=== PATIENT | female | born 1980 | race Caucasian/White ===

== ENCOUNTER → 2023-07-28 08:44 | Outpatient (REF) | payer BC, SELFPAY | LOC: HWRAD 08:44 | PROVIDERS: ATTENDING PHYSICIAN Obstetrics & Gynecology; FAMILY PHYSICIAN Student in an Organized Health Care Education/Training Program | DX: N92.0 Excessive and frequent menstruation with regular cycle (principal) | CPT/HCPCS: 76830; 76856 ==

== ENCOUNTER → 2023-08-21 10:03 | Outpatient (REF) | payer BC, SELFPAY | LOC: HWWDC 10:03 | PROVIDERS: ATTENDING PHYSICIAN Obstetrics & Gynecology; FAMILY PHYSICIAN Student in an Organized Health Care Education/Training Program | DX: Z12.31 Encounter for screening mammogram for malignant neoplasm of breast (principal) | CPT/HCPCS: 77063; 77067 ==

== ENCOUNTER → 2024-02-19 10:35 | Outpatient (REF) | payer BC, SELFPAY | LOC: WDC 10:35 | PROVIDERS: ATTENDING PHYSICIAN Obstetrics & Gynecology; FAMILY PHYSICIAN Student in an Organized Health Care Education/Training Program | DX: N64.4 Mastodynia (principal) | CPT/HCPCS: 76642; 77061; 77065 ==

== ENCOUNTER 2024-08-31 10:50 | Emergency (ER) | payer BC, SELFPAY ==
[2024-08-31 10:55] VITALS: BP 123/79
--- NOTE | 2024-08-31 11:01 | ED.GENMED ---
History of Present Illness
<Korey Singh PA-C - Last Filed: 08/31/24 13:58>
General
Chief Complaint: Chest Pain
Time Seen by Provider: 08/31/24 10:59
History of Present Illness
History of Present Illness:
43-year-old female presents to the emergency department for evaluation of intermittent chest pains ongoing for the past several days. Pain seems to vary in location from the lower to upper chest. No obvious provoking or palliating factors. She
does follow as an outpatient with cardiology and had a recent echocardiogram as well as a stress test late last year that were both grossly unremarkable. She has no shortness of breath or leg swelling/calf cramping. Does not take any exogenous
hormones. No recent immobilization. Denies any recent fevers or chills.
Past History
<Lauro Forrester DO - Last Filed: >
Past History
ED Past Medical History: Hypothyroidism; Negative Asthma, HTN, Hypercholesterolemia or NIDDM
ED Past Surgical History: Gynecological (medical termination of at 20 weeks)
Social History
Tobacco: Non-smoker
Alcohol: None
Personal:
Living: with family
Review of Systems
<Korey Singh PA-C - Last Filed: 08/31/24 13:58>
Review of Systems
Allergies reviewed?: Yes
All Other Systems: ROS reviewed and negative except as documented in HPI and ROS
Phy Exam
<Korey Singh PA-C - Last Filed: 08/31/24 13:58>
Physical Exam
Physical Exam:
GEN: Well appearing, NAD, WDWN
HEENT: Oral mucosa moist, no scleral icterus
Cardiac: Regular rate and rhythm, no murmurs
Lung: No respiratory distress, no tachypnea, lungs clear to auscultation
Chest: Mildly reproduced chest discomfort the left upper chest wall without palpable deformity
MSK: No gross deformity or injuries
Skin: Good color, no pallor or jaundice, no rashes
Neuro: AO x3, moves all extremities freely
Psych: Calm, cooperative
Scores
<Korey Singh PA-C - Last Filed: 08/31/24 13:58>
Heart Score for Chest Pain Patients
STEMI patient?: No
History: Slightly or Non-Suspicious
ECG: Normal
Age: </= 45 years
Risk Factors: 1 or 2 Risk Factors
Troponin: </= Normal Limit
Heart Score for Chest Pain Patients: 1
Heart Score Risk: 2.5% MACE over next 6 weeks
Course
<Korey Singh PA-C - Last Filed: 08/31/24 13:58>
Orders/Labs/Results
Orders:
Orders
08/31/24 10:51
Electrocardiogram (*1) Urgent
Reason for Study: Chest Pain
EKG- Treatment ONCE
08/31/24 12:04
Complete Blood Count/No Diff Urgent
Comprehensive Metabolic Panel Urgent
Troponin I Urgent
Abnormal Lab Results
08/31/24
12:04
MCV 79.7 L fL
(81.0-99.0)
Chloride 109 H mmol/L
(98-107)
08/31/24 12:04
08/31/24 12:04
Vital Signs
Initial and Last Documented VS:
Initial Vital Signs
Temp Pulse Resp BP Pulse Ox
98.3 F 72 18 123/79 100
08/31/24 10:55 08/31/24 10:55 08/31/24 10:55 08/31/24 10:55 08/31/24 10:55
Last Documented Vital Signs
Temp Pulse Resp BP Pulse Ox
98.3 F 70 18 120/74 99
08/31/24 10:55 08/31/24 13:10 08/31/24 13:10 08/31/24 13:10 08/31/24 13:10
<Lauro Forrester DO - Last Filed: >
Orders/Labs/Results
Orders:
Orders
08/31/24 10:51
Electrocardiogram (*1) Urgent
Reason for Study: Chest Pain
EKG- Treatment ONCE
08/31/24 12:04
Complete Blood Count/No Diff Urgent
Comprehensive Metabolic Panel Urgent
Troponin I Urgent
Abnormal Lab Results
08/31/24
12:04
MCV 79.7 L fL
(81.0-99.0)
Chloride 109 H mmol/L
(98-107)
08/31/24 12:04
08/31/24 12:04
Vital Signs
Initial and Last Documented VS:
Initial Vital Signs
Temp Pulse Resp BP Pulse Ox
98.3 F 72 18 123/79 100
08/31/24 10:55 08/31/24 10:55 08/31/24 10:55 08/31/24 10:55 08/31/24 10:55
Last Documented Vital Signs
Temp Pulse Resp BP Pulse Ox
98.3 F 70 18 120/74 99
08/31/24 10:55 08/31/24 13:10 08/31/24 13:10 08/31/24 13:10 08/31/24 13:10
<Korey Singh PA-C - Last Filed: 08/31/24 13:58>
MDM/Problems Addressed
MDM/Problems Addressed:
Clinical presentation not concerning for acute coronary syndrome. She meets PE rule out criteria. Overall workup is reassuring, recommend primary care follow-up if ongoing
<Korey Singh PA-C - Last Filed: 08/31/24 13:58>
Comment
Comment:
EKG independently interpreted by me shows a normal sinus rhythm at a rate of [address] changes
*Pulse Oximetry
Patient hypoxic: no
Comment: 100% room air
*Critical Care Note
Total Time (30-74mins, 75-104mins- exclusive of procedures): Not Applicable
ED Attending Note
<Lauro Forrester, DO - Last Filed: >
-
Portions of this chart may have been created with voice recognition software.� Occasional wrong word or��sound alike� substitutions may have occurred due to the inherent limitations of voice recognition software.
Discharge Plan
Departure
Patient Disposition: Home (Routine Discharge)
Date of Disposition: 08/31/24
Time of Disposition: 12:59
Patient with high blood pressure during this ER visit?: No
Discharge Problem:
Atypical chest pain
Instructions: Chest Pain That Is Not Caused by the Heart (DC)
Prescriptions:
No Action
alprazolam 0.25 MG tablet
0.25 mg PO HSPRN PRN (Reason: anxiety)
levothyroxine 125 MCG tablet
125 mcg PO DAILY
sertraline 50 MG tablet
50 mg PO HS
prenat 115-iron [id number] 1 EACH tablet
1 ea PO DAILY
Referrals:
Parisa Goldsmith PA-C [Family Provider, Family Practice]
Interventions
Interventions:
*Risk Screen - Suicide Last Done: 08/31/24 10:56
*General Assessment Last Done: 08/31/24 10:56
*Neglect/Abuse Screening Last Done: 08/31/24 10:56
*Nursing Disposition Last Done: 08/31/24 13:10
ED- Cardiac Assessment Last Done: 08/31/24 11:03
Discharge Date and Time
Discharge Date/Time: 08/31/24 13:12
Print Language: OCCITAN
[2024-08-31 12:21] LABS: Hematocrit 38.5 % (37.0-47.0); Hemoglobin 13.9 g/dL (12.0-16.0); Mean Corp Hgb Conc. 36.1 g/dL (33.0-37.0); Mean Corpuscular Hgb 28.8 pg (27.0-31.0); Mean Corpuscular Volume 79.7 fL (81.0-99.0); Mean Platelet Volume 9.6 fL (7.4-10.4); Platelet Count 209 10^3/uL (130-400); Red Blood Cell Count 4.83 10^6/uL (4.20-5.40); Red Cell Dist. Width 12.4 % (11.5-14.5); White Blood Cell Count 6.5 10^3/uL (4.8-10.8)
[2024-08-31 12:37] LABS: ALT (SGPT) 14 U/L (0-35); AST (SGOT) 19 U/L (14-36); Alkaline Phosphatase 68 U/L (38-126); Blood Urea Nitrogen 13 mg/dl (7-17); Calcium 9.1 mg/dl (8.4-10.2); Carbon Dioxide 24 mmol/L (22-30); Chloride 109 mmol/L (98-107); Glucose 87 mg/dl (70-99); Potassium 3.6 mmol/L (3.5-5.1); Sodium 140 mmol/L (135-145); Total Bilirubin 0.6 mg/dl (0.2-1.3); Total Protein 6.4 g/dl (6.3-8.2); eGFR > 60.00
[2024-08-31 12:48] LABS: Troponin I < 0.012 ng/ml
[2024-08-31 13:10] VITALS: BP 120/74
== END 2024-08-31 13:12 | disposition home or self-care (01) ==
LOC: EMR 10:50
PROVIDERS: Physician Assistant; EMERGENCY PHYSICIAN Emergency Medicine; FAMILY PHYSICIAN Student in an Organized Health Care Education/Training Program
DX: R07.89 Other chest pain (principal); E03.9 Hypothyroidism, unspecified
CPT/HCPCS: 99284; 80053; 84484; 85027; 93005

== ENCOUNTER → 2025-03-14 10:22 | Outpatient (REF) | payer BC, SELFPAY | LOC: MRI 3T 10:22 | PROVIDERS: ATTENDING PHYSICIAN Surgery; FAMILY PHYSICIAN Physician Assistant Medical | DX: Z91.89 Other specified personal risk factors, not elsewhere classified (principal); R92.30 Dense breasts, unspecified | CPT/HCPCS: 77049; A9585 ==